=== PATIENT | female | born 1955 | race Two or more races ===

== ENCOUNTER 2019-09-17 15:29 | Emergency (ER) | payer BC ==
[~2019-09-17] VITALS: Ht 154.9 cm; Wt 77.6 kg
[2019-09-17 16:44] LABS: BASOPHILS # (AUTO) 0.02 x10^3/uL (0-0.1); BASOPHILS % (AUTO) 0 % (0-1); EOSINOPHILS # (AUTO) 0.03 x10^3/uL (0-0.4); EOSINOPHILS % (AUTO) 0 % (1-7); LYMPHOCYTES # (AUTO) 1.69 x10^3/uL (1-3.4); LYMPHOCYTES % (AUTO) 20 % (22-44); MD NO; MEAN CORPUSCULAR HEMOGLOBIN 28.1 pg (27.0-34.8); MEAN CORPUSCULAR HGB CONC 33.6 g/dL (32.4-35.8); MEAN CORPUSCULAR VOLUME 83.5 fL (80-100); MONOCYTES # (AUTO) 1.11 x10^3/uL (0.2-0.8); MONOCYTES % (AUTO) 13 % (2-9); NEUTROPHILS # (AUTO) 5.85 x10^3/uL (1.8-6.8); NEUTROPHILS % (AUTO) 67 % (42-75); PLATELET COUNT 254 x10^3/uL (130-400); RED BLOOD COUNT 4.91 x10^6/uL (3.82-5.3); RED CELL DISTRIBUTION WIDTH 15.8 % (9.6-15.2)
[2019-09-17 16:56] LABS: ANION GAP 7 mmol/L (5-15); CALCIUM 8.7 mg/dL (8.5-10.1); CHLORIDE 109 mmol/L (98-107); CREATININE 1.13 mg/dL (0.55-1.02)
[2019-09-17 20:42] LABS: RAPID INFLUENZA A Negative (Negative); RAPID INFLUENZA B Negative (Negative)
--- NOTE | 2019-09-17 20:47 | NUR ---
Pt back to room.
--- NOTE | 2019-09-17 20:49 | NUR ---
Pt here for cold like syptoms with new onset of bowel distress. Pt reports she is passing "clear bile" in he feces. Pt denies trauma. Pt reprots she was ill before the holidays but decided to wait. Pt reports that she can no longer tolearte the "unbearable pain" per pts words anymore. The patient however was able to walk from triage to her room spekaing in full sentances without any distress noted. Pt asked for ua sample and pt placed in room. Awaiting further orders.
[2019-09-17 21:10] LABS: MICROSCOPIC AUTO
[2019-09-17 21:19] LABS: CULTURE INDICATED? YES
[2019-09-17 21:40] LABS: ALANINE AMINOTRANSFERASE 46 U/L (12-78); ALBUMIN 3.1 g/dL (3.4-5.0); BILIRUBIN, DIRECT 0.1 mg/dL (0.1-0.2)
[2019-09-17 21:43] LABS: ALKALINE PHOSPHATASE 96 U/L (45-117); BILIRUBIN,INDIRECT 0.3 mg/dL (0.0-2.0); BILIRUBIN,TOTAL 0.4 mg/dL (0.2-1.0); TOTAL PROTEIN 7.8 g/dL (6.4-8.2); TROPONIN I < 0.015 ng/mL (0.000-0.045)
--- NOTE | 2019-09-17 22:08 | NUR ---
Patient is resting comfortably in bed. Vital Signs within normal limits.
[2019-09-17] MEDS ORDERED: METHOCARBAMOL 750 MG TABLET ONE ×2 (23:11→23:14)
[2019-09-17] MEDS ORDERED: HYDROcodone/APAP 5/325 TABLET ONE (23:11)
[2019-09-17] MEDS ORDERED: METHOCARBAMOL 750 MG TABLET PO ONE (23:30)
[2019-09-17] MEDS ORDERED: HYDROcodone/APAP 5/325 TABLET PO ONE (23:30)
--- NOTE | 2019-09-17 23:31 | NUR ---
pT MEDICATED PER EMAR.
--- NOTE | 2019-09-18 00:28 | NUR ---
Patient/Caregiver given discharge instructions and they have confirmed that they understand the instructions. Patient ambulatory with steady gait.
[2019-09-18 00:29] VITALS: BP 122/84
== END 2019-09-18 00:31 | disposition home or self-care (01) ==
LOC: ED 09-18 00:25
DX: K85.00 Idiopathic acute pancreatitis without necrosis or infection (principal); M54.5 Low back pain; I10 Essential (primary) hypertension; Z90.49 Acquired absence of other specified parts of digestive tract
CPT/HCPCS: 36415; 71046; 74176; 80048; 80076; 81001; 83690; 84484; 85025; 87086; 87400; 99284